=== PATIENT | female | born 1960 | race Caucasian/White ===

== ENCOUNTER → 2016-11-02 | Outpatient (CLI) | payer BC ==
[~2016-11-02] MED LIST: GADAVIST IV PRN; INTE44IN INJ; MODA1TAB PO
--- NOTE | 2016-11-02 09:22 | DIAGNOSTIC IMAGING REPORT ---
BRAIN COMBO FOR MS CLINICAL HISTORY: Multiple sclerosis. Left hand weakness. Numbness and tingling. COMPARISON STUDY: MRI the brain October 11, 2015. TECHNIQUE: Utilizing 1.5 Evangelina magnet and dedicated coil, multiplanar, multiecho imaging of the brain was performed pre and postcontrast administration according to the multiple sclerosis protocol. Injection of 6 cc of Gadavist IV was uneventful. FINDINGS: There are no areas of restricted diffusion. No acute intracranial hemorrhage, midline shift or mass effect is present. Brain volume is normal. Ventricular system is normal. Basilar cisterns are patent. There are no extra-axial collections. Flow-voids for the major intracranial vessels are present. Multiple white matter T2 hyperintense foci are similar to exam of October 11, 2015. No new areas of signal abnormality are identified. There is no parenchymal enhancement to suggest active demyelination. Calvarial signal is normal. Orbits are unremarkable. IMPRESSION: 1. No acute intracranial findings. 2. No change in multiple white matter T2 hypertense foci since MRI of October 11, 2015. While nonspecific, the findings would be consistent with the history of multiple sclerosis. No new plaques. No evidence for active demyelination. Electronically signed by: Jakub Corey M.D. 11/02/2016 9:21 AM Dictated Date/Time: 11/02/2016 9:13 AM
--- NOTE | 2016-11-02 09:41 | DIAGNOSTIC IMAGING REPORT ---
CERVICAL SPINE MRI WITH AND WITHOUT CONTRAST HISTORY: Multiple sclerosis; LEFT HAND WEAKNESS; NUMBNESS AND TINGLING TECHNIQUE: Multiplanar multisequence MRI of the cervical spine was performed both before and after the use of intravenous contrast. COMPARISON STUDY: Cervical spine MRI 10/11/2015. FINDINGS: No fractures or subluxation within the cervical spine. Prevertebral soft tissues and the C1-C2 interval are intact. Moderate disc space narrowing at C6-C7. Small broad-based posterior disc bulges seen at C3-C4, C4-C5, C5-C6, and C6-C7 without significant central canal narrowing. There is mild right-sided neural foraminal narrowing at C4-C5. There is mild left-sided neural foraminal narrowing at C3-C4. Best seen on the sagittal STIR sequences there again noted multiple scattered T2 hyperintense lesions within the cervical and upper thoracic spine. Dominant lesion at the C3-C4 level remains unchanged and measures 11 mm. There is a new 8 mm T2 hyperintense lesion at the C4-C5 level. Stable mild thinning of the cervical spinal cord at the C6-C7 level. IMPRESSION: There again noted multiple scattered T2 hyperintense lesions within the cervical and upper thoracic spinal cord consistent with the patient's history of multiple sclerosis. The majority of lesions are stable. There is a new 8 mm lesion at the C4-C5 level. No abnormal enhancement. Electronically signed by: Herbert Araiza M.D. 11/02/2016 9:40 AM Dictated Date/Time: 11/02/2016 9:20 AM
[2016-11-02 14:34] LABS: BASO % 0.6 %; BASO ABS # 0.03 K/uL (0-0.2); COMPLETE YES; EOS % 1.1 %; HEMATOCRIT 41.6 % (37-47); IG% 0.2 %; LYMPH % 37.7 %; MEAN CELL VOLUME 94.1 fL (80-100); MEAN CORPUSCULAR HEMOGLOBIN 31.4 pg (25-34); MEAN CORPUSCULAR HGB CONC 33.4 g/dl (32-36); MONO % 5.8 %; NEUT % 54.6 %; PLATELET COUNT 259 K/uL (130-400); RED BLOOD COUNT 4.42 M/uL (4.2-5.4); WHITE BLOOD COUNT 5.31 K/uL (4.8-10.8)
[2016-11-02 15:00] LABS: ALT/SGPT 30 U/L (12-78); AST/SGOT 22 U/L (15-37); BLOOD UREA NITROGEN 10 mg/dl (7-18); BUN/CREATININE RATIO 12.2 (10-20); CALCIUM 9.6 mg/dl (8.5-10.1); CARBON DIOXIDE 34 mmol/L (21-32); CHLORIDE 102 mmol/L (98-107); CREATININE 0.81 mg/dl (0.60-1.20); GLUCOSE 74 mg/dl (70-99); POTASSIUM 3.9 mmol/L (3.5-5.1); SODIUM 138 mmol/L (136-145)
[2016-11-02 15:15] LABS: ALB/GLOB RATIO 1.4 (0.9-2); ALKALINE PHOSPHATASE 118 U/L (45-117)
[2016-11-05 22:42] LABS: VARICELLA ZOS VIR IGM AB <=0.90 (<=0.90)
[2016-11-07 07:43] LABS: JCV ANTIBODY NEGATIVE
== END | disposition home or self-care (01) ==
LOC: C.MRIBC 07:44
PROVIDERS: ATTEND Psychiatry & Neurology Neurology
DX: G35 Multiple sclerosis (principal); R29.898 Other symptoms and signs involving the musculoskeletal system; R53.82 Chronic fatigue, unspecified; E55.9 Vitamin D deficiency, unspecified

== ENCOUNTER → 2016-12-26 | Outpatient (CLI) | payer BC ==
[~2016-12-26] MED LIST changes: -GADAVIST IV PRN
--- NOTE | 2016-12-26 16:43 | MAMMOGRAPHY REPORT ---
BILATERAL DIGITAL SCREENING MAMMOGRAM TOMOSYNTHESIS WITH CAD: 12/26/2016 CLINICAL HISTORY: Routine screening examination. TECHNIQUE: Breast tomosynthesis in addition to standard 2D mammography was performed. Current study was also evaluated with a Computer Aided Detection (CAD) system. COMPARISON: Comparison is made to exams dated: 12/23/2015 mammogram, 01/04/2010 ultrasound, and 010 mammogram - [facility]. BREAST COMPOSITION: The tissue of both breasts is extremely dense, which lowers the sensitivity of m ammography. FINDINGS: The parenchymal pattern is similar to recent prior exams. There is decreased nodularity c ompared to more remote prior mammograms. There are scattered benign-appearing microcalcifications. No developing mass, architectural distortion or cluster of suspicious microcalcifications is seen in either breast. IMPRESSION: ACR BI-RADS CATEGORY 2: BENIGN There is no mammographic evidence of malignancy. A 1 year screening mammogram is recommended. The pa tient will receive written notification of the results. Approximately 10% of breast cancers are not detected with mammography. A negative mammographic report should not delay biopsy if a clinically suggestive mass is present. Stephanie Fournier M.D. ay/:12/26/2016 16:11:33 Ceramic Plater: Mey MONSIVAIS(David)(Marlon), [facility] letter sent: Normal 1/2 BI-RADS Code: ACR BI-RADS Category 2: Benign
== END | disposition home or self-care (01) ==
LOC: C.MAMM 07:11
PROVIDERS: ATTEND Nurse Practitioner Family
DX: Z12.31 Encounter for screening mammogram for malignant neoplasm of breast (principal)

== ENCOUNTER → 2017-01-23 | Outpatient (CLI) | payer BC ==
[2017-01-23 14:25] LABS: COMPLETE YES; EOS % 1.7 %; LYMPH % 8.2 %; LYMPH ABS # 0.24 K/uL (1.2-3.4); MEAN CELL VOLUME 91.3 fL (80-100); MEAN CORPUSCULAR HEMOGLOBIN 32.2 pg (25-34); MEAN CORPUSCULAR HGB CONC 35.3 g/dl (32-36); MEAN PLATELET VOLUME 10.4 fL (7.4-10.4); MONO % 9.9 %; NEUT % 80.2 %; PLATELET COUNT 276 K/uL (130-400); RED BLOOD COUNT 4.16 M/uL (4.2-5.4); WHITE BLOOD COUNT 2.94 K/uL (4.8-10.8)
== END | disposition home or self-care (01) ==
LOC: C.LABBC 10:27
PROVIDERS: ATTEND Physician Assistant
DX: G35 Multiple sclerosis (principal)

== ENCOUNTER → 2017-02-06 | Outpatient (CLI) | payer BC ==
[2017-02-06 17:06] LABS: BASO % 0.3 %; BASO ABS # 0.01 K/uL (0-0.2); COMPLETE YES; EOS % 2.1 %; HEMATOCRIT 39.5 % (37-47); IG% 0.3 %; LYMPH % 5.5 %; LYMPH ABS # 0.18 K/uL (1.2-3.4); MEAN CELL VOLUME 91.9 fL (80-100); MEAN CORPUSCULAR HGB CONC 32.7 g/dl (32-36); MEAN PLATELET VOLUME 10.5 fL (7.4-10.4); MONO % 8.5 %; NEUT % 83.3 %; PLATELET COUNT 269 K/uL (130-400); WHITE BLOOD COUNT 3.28 K/uL (4.8-10.8)
[2017-02-06 17:19] LABS: ALT/SGPT 55 U/L (12-78); AST/SGOT 29 U/L (15-37); BLOOD UREA NITROGEN 8 mg/dl (7-18); CALCIUM 9.2 mg/dl (8.5-10.1); CARBON DIOXIDE 31 mmol/L (21-32); CHLORIDE 99 mmol/L (98-107); CREATININE 0.91 mg/dl (0.60-1.20); GLUCOSE 120 mg/dl (70-99); POTASSIUM 3.9 mmol/L (3.5-5.1); SODIUM 135 mmol/L (136-145)
[2017-02-06 17:21] LABS: ALB/GLOB RATIO 1.4 (0.9-2); ALKALINE PHOSPHATASE 157 U/L (45-117)
== END | disposition home or self-care (01) ==
LOC: C.LABBC 14:07
PROVIDERS: ATTEND Physician Assistant
DX: G35 Multiple sclerosis (principal)

== ENCOUNTER → 2017-02-21 | Outpatient (CLI) | payer BC ==
[2017-02-21 16:49] LABS: BASO % 0.3 %; BASO ABS # 0.01 K/uL (0-0.2); COMPLETE YES; EOS % 1.9 %; HEMATOCRIT 38.6 % (37-47); IG% 0.3 %; LYMPH % 9.4 %; MEAN CELL VOLUME 91.3 fL (80-100); MEAN CORPUSCULAR HEMOGLOBIN 31.4 pg (25-34); MEAN CORPUSCULAR HGB CONC 34.5 g/dl (32-36); MEAN PLATELET VOLUME 10.8 fL (7.4-10.4); MONO % 10.9 %; NEUT % 77.2 %; PLATELET COUNT 266 K/uL (130-400); RED BLOOD COUNT 4.23 M/uL (4.2-5.4)
== END | disposition home or self-care (01) ==
LOC: C.LABBC 13:44
PROVIDERS: ATTEND Physician Assistant
DX: G35 Multiple sclerosis (principal)

== ENCOUNTER → 2017-03-06 | Outpatient (CLI) | payer BC ==
[2017-03-06 16:47] LABS: BASO % 0.3 %; BASO ABS # 0.01 K/uL (0-0.2); COMPLETE YES; EOS % 1.3 %; HEMATOCRIT 38.1 % (37-47); IG% 0.3 %; LYMPH % 5.1 %; MEAN CELL VOLUME 92.3 fL (80-100); MEAN CORPUSCULAR HEMOGLOBIN 31.5 pg (25-34); MEAN CORPUSCULAR HGB CONC 34.1 g/dl (32-36); MEAN PLATELET VOLUME 10.6 fL (7.4-10.4); MONO % 7.1 %; NEUT % 85.9 %; PLATELET COUNT 251 K/uL (130-400); RED BLOOD COUNT 4.13 M/uL (4.2-5.4); WHITE BLOOD COUNT 3.95 K/uL (4.8-10.8)
== END | disposition home or self-care (01) ==
LOC: C.LABBC 14:22
PROVIDERS: ATTEND Physician Assistant
DX: G35 Multiple sclerosis (principal)

== ENCOUNTER → 2017-03-22 | Outpatient (CLI) | payer BC ==
[2017-03-22 12:24] LABS: BASO % 0.3 %; BASO ABS # 0.01 K/uL (0-0.2); COMPLETE YES; EOS % 3.3 %; HEMATOCRIT 40.3 % (37-47); IG% 0.3 %; LYMPH ABS # 0.39 K/uL (1.2-3.4); MEAN CORPUSCULAR HEMOGLOBIN 31.4 pg (25-34); MEAN PLATELET VOLUME 10.8 fL (7.4-10.4); NEUT % 74.1 %; PLATELET COUNT 248 K/uL (130-400); RED BLOOD COUNT 4.24 M/uL (4.2-5.4); WHITE BLOOD COUNT 3.01 K/uL (4.8-10.8)
== END | disposition home or self-care (01) ==
LOC: C.LABBFT 08:27
PROVIDERS: ATTEND Psychiatry & Neurology Neurology
DX: G35 Multiple sclerosis (principal)

== ENCOUNTER → 2017-04-18 | Outpatient (CLI) | payer BC ==
[2017-04-18 12:25] LABS: BASO % 0.7 %; BASO ABS # 0.02 K/uL (0-0.2); COMPLETE YES; EOS % 2.6 %; HEMATOCRIT 39.5 % (37-47); IG% 0.3 %; LYMPH % 9.6 %; LYMPH ABS # 0.29 K/uL (1.2-3.4); MEAN CELL VOLUME 92.3 fL (80-100); MEAN CORPUSCULAR HEMOGLOBIN 31.3 pg (25-34); MEAN CORPUSCULAR HGB CONC 33.9 g/dl (32-36); MEAN PLATELET VOLUME 11.1 fL (7.4-10.4); MONO % 9.6 %; NEUT % 77.2 %; PLATELET COUNT 227 K/uL (130-400); RED BLOOD COUNT 4.28 M/uL (4.2-5.4); WHITE BLOOD COUNT 3.02 K/uL (4.8-10.8)
[2017-04-18 12:27] LABS: ALT/SGPT 37 U/L (12-78); BLOOD UREA NITROGEN 12 mg/dl (7-18); BUN/CREATININE RATIO 14.2 (10-20); CALCIUM 9.4 mg/dl (8.5-10.1); CARBON DIOXIDE 31 mmol/L (21-32); CHLORIDE 104 mmol/L (98-107); CREATININE 0.86 mg/dl (0.60-1.20); GLUCOSE 83 mg/dl (70-99); POTASSIUM 4.2 mmol/L (3.5-5.1); SODIUM 138 mmol/L (136-145)
[2017-04-18 12:30] LABS: ALB/GLOB RATIO 1.4 (0.9-2); ALKALINE PHOSPHATASE 158 U/L (45-117); AST/SGOT 28 U/L (15-37)
== END | disposition home or self-care (01) ==
LOC: C.LABBFT 08:07
PROVIDERS: ATTEND Psychiatry & Neurology Neurology
DX: G35 Multiple sclerosis (principal); E55.9 Vitamin D deficiency, unspecified

== ENCOUNTER 2017-09-22 13:08 | Emergency (ER) | payer BC, OTHER ==
[~2017-09-22] VITALS: Ht 172.7 cm; Wt 61.4 kg
[2017-09-22 13:17] VITALS: TEMP 36.6; Ht 172.7 cm; Wt 61.4 kg
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
[2017-09-22] MEDS ORDERED: NALTPOW (14:28)
[2017-09-22] MEDS ORDERED: FING1CAP PO (14:28)
[2017-09-22] MEDS ORDERED: NALT50TA5 PO (14:28)
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
[2017-09-22 16:33] VITALS: BP 150/88; PULSE 86; O2SAT 99
== END 2017-09-22 16:34 | disposition home or self-care (01) ==
LOC: EDBD 13:08 → C.EDA 13:10
DX: M54.5 Low back pain (principal); V89.2XXA Person injured in unspecified motor-vehicle accident, traffic, initial encounter; G35 Multiple sclerosis; Z82.49 Family history of ischemic heart disease and other diseases of the circulatory system